=== PATIENT | female | born 1990 ===

== ENCOUNTER 2024-03-01 09:30 | Outpatient (REF) | payer OTHER, SELFPAY ==
--- NOTE | ~2024-03-01 | US_ITS ---
EXAMINATION: US PELVIS CLINICAL INFORMATION: Pelvic and perineal pain, IUD inserted 1 month ago, spotting for 3 weeks. COMPARISON: None available. TECHNIQUE: Ultrasound of the pelvis is performed using both transabdominal and transvaginal transducers along with Doppler. Transvaginal imaging is performed due to inadequate visualization transabdominally. FINDINGS: The uterus measures 6.4 x 4.0 x 3.8 cm. IUD within the endometrial cavity. Visualization of the endometrium is limited due to shadowing from the IUD. Imaged portion of endometrium with thickness of 4 mm. Uterus is retroverted. Left ovary measures 3.0 x 2.9 x 2.4 cm. Right ovary measures 4.5 x 4.1 x 3.4 cm. A 3.6 x 3.1 x 2.8 cm right ovarian cyst with small daughter cysts, likely physiologic. US/US pelvic and transvaginal IMPRESSION: 1. IUD within the endometrial cavity. Visualization of the endometrium is limited due to shadowing from the IUD. Imaged portion of endometrium with thickness of 4 mm. 2. A 3.6 cm right ovarian cyst with small daughter cysts, likely physiologic. This study was presented today, March 01, 2024, for interpretation. Stat results provided at this time as requested by referring provider. Electronically signed by: Jaimee Shrestha MD 03/01/2024 11:23 AM [facility]
== END 2024-03-01 09:31 | disposition home or self-care (01) ==
LOC: HO.UMASIMG 09:30
PROVIDERS: Visit Provider Nurse Practitioner Women's Health
DX: Z30.431 Encounter for routine checking of intrauterine contraceptive device (principal); R10.2 Pelvic and perineal pain
CPT/HCPCS: 76830; 76856